=== PATIENT | male | born 1955 | race Caucasian/White ===

== ENCOUNTER 2020-07-18 22:59 | Outpatient (RCR) | payer MEDICARE, SELFPAY ==
[2020-07-18] MEDS: COVID-19 VACC, MRNA(PFIZER)/PF 30 MCG/0.3 ML SYRINGE IM (11:48)
[2020-08-08] MEDS: COVID-19 VACC, MRNA(PFIZER)/PF 30 MCG/0.3 ML SYRINGE IM (11:12)
== END 2020-10-17 23:59 ==
LOC: IMMUN 22:59
PROVIDERS: PCP Nurse Practitioner Primary Care; Visit Provider Family Medicine
DX: Z23 Encounter for immunization (principal)
CPT/HCPCS: 0001A; 0002A; 91300

== ENCOUNTER 2023-02-18 15:21 | Inpatient (IN) | payer MEDICARE, SELFPAY ==
[2023-02-18 15:22] VITALS: BP 108/78; PULSE 87; RESP 16; TEMP 36; O2SAT 97; BMI 38.7
--- NOTE | 2023-02-18 17:10 | EKG12_ITS ---
Test Reason : Blood Pressure : / mmHG Vent. Rate : 082 BPM Atrial Rate : 082 BPM P-R Int : 186 ms QRS Dur : 088 ms QT Int : 358 ms P-R-T Axes : -03 -16 -12 degrees QTc Int : 418 ms Normal sinus rhythm Inferior infarct , age undetermined Anterolateral infarct , age undetermined Abnormal ECG Confirmed by SHEILA DAWSON, TASHA ([id number]), movie editor ARNALDO ALBERTO ([id number]) on 02/24/2023 2:05:49 PM Referred By: Confirmed By:TASHA SOSA MD
[2023-02-18 17:18] LABS: Absolute Lymphocyte Count 1.23 X10^3/uL (0.83-4.51); Absolute Neutrophil Count 10.2 X10^3/uL (2.0-7.7); Basophil# 0.15 X10^3/uL; Basophil% 1.1 % (0-1); Eosinophil# 0.26 X10^3/uL; Hematocrit 48.5 % (40-54); Hemoglobin 16.3 g/dL (13.0-16.5); Lymphocyte # 1.23 X10^3/ul (0.83-4.51); Lymphocyte % 9.4 % (19-41); Mean Corp Hgb Conc 33.6 g/dL (32-36); Mean Corpuscular Hgb 35.4 pg (27.0-32.0); Mean Corpuscular Volume 105.2 fL (80-94); Mean Platelet Vol. 9.2 fl (6.2-12.0); Monocyte% 9.2 % (0-10); NRBC Flagged by Analyzer 0 % (0-5); Neutrophil # 10.16 X10^3/uL (2.7-7.7); Neutrophil % 77.8 % (47-70); Platelet Count 312 K/mm3 (150-450); RBC Distribution Width CV 13.1 % (11.6-14.6); RBC Distribution Width SD 50.7 fl (35.1-43.9); Red Blood Count 4.61 M/mm3 (4.6-6.2); White Blood Count 13.1 K/mm3 (4.4-11.0)
--- NOTE | 2023-02-18 17:20 | EX.ED.DYSGE1 ---
HPI History of Present Illness Chief Complaint: Edema Informant: patient Narrative Narrative: Patient presents secondary to increasing edema over the past couple weeks. He first noted swelling in his lower extremities and states it is now up into his abdomen. He feels short of breath. His noted he had bright red blood per rectum today. Patient states he has never had a colonoscopy. He sees his doctor once a year but states she does not normally do blood work. Patient does report a drink a pint of whiskey every day but denies any known problems with his liver. [facility] Medical History (Updated 02/18/23 @ 21:[address] Mercedes Carpenter MD) Hypertension Allergy/AdvReac Type Severity Reaction Status Date / Time No Known Allergies Allergy Verified 02/18/23 15:22 Social History Smoking Status: Never smoker ROS ROS ED Constitutional Constitutional ED: Denies chills or fever(s) Eyes Eyes: Denies change in vision or discharge from eye(s) ENT ENT ED: Denies discharge from eye(s), rhinorrhea or sore throat Cardiovascular Cardiovascular: Denies chest pain or palpitations Respiratory/Chest Respiratory/Chest: Reports dyspnea; Denies cough Gastrointestinal Gastrointestinal: Reports abdominal pain, nausea and other Details: Right red blood per rectum ; Denies diarrhea or vomiting Genitourinary Genitourinary ED: Denies dysuria Musculoskeletal Musculoskeletal: Reports extremity pain; Denies back pain Integumentary Denies Abrasions or rash Neurologic Neurologic: Denies headache(s) or weakness Psychiatric Psychiatric: Denies anxiety or depression Allergic/Immunologic Allergic/Immunologic ED: Denies lip swelling or urticaria EXAM Physical Exam Const Vital Signs: 02/18/23 15:22 02/18/23 16:41 02/18/23 18:46 Temperature 96.8 F L Temperature Source Temporal Pulse Rate 87 81 Respiratory Rate 16 20 H Respiratory Effort Normal Non-Labored Respiratory Pattern Normal Blood Pressure 108/78 Blood Pressure Mean 88 Pulse Ox 97 92 Oxygen Delivery Method Room Air 02/18/23 20:02 Temperature Temperature Source Pulse Rate 82 Respiratory Rate 16 Respiratory Effort Respiratory Pattern Blood Pressure 108/70 Blood Pressure Mean 82 Pulse Ox 94 Oxygen Delivery Method Room Air Positive well nourished and well developed General Appearance ED: well developed HEENT Reports normocephalic and head/scalp atraumatic Eyes PERRL and EOMs intact bilaterally Neck supple Chest Wall inspection of chest normal and palpation of chest normal Resp normal respiratory effort and clear to auscultation bilaterally Cardio regular rate and regular rhythm GI GI Narrative: Abdomen distended with ascitic fluid. Palpation: soft Extremity Extremity Narrative: 4+ lower extremity edema bilaterally. Neuro oriented x3 and no sensory deficits noted Sensorium / Orientation: alert Motor Exam: strength 5/5 throughout Psych mental status grossly normal Skin no rashes or lesions noted MDM MDM MDM Narrative Medical decision making narrative: IV line established. Labwork obtained to evaluate for leukocytosis, anemia, and electrolyte derangement. CT scan abdomen pelvis obtained. Lab Data Attestation: I reviewed the patient's lab results. Labs: Laboratory Results - last 24 hr 02/18/23 16:50 WBC 13.1 H RBC 4.61 Hgb 16.3 Hct 48.5 MCV 105.2 H MCH 35.4 H MCHC 33.6 RDW Std Deviation 50.7 H RDW Coeff of Hector 13.1 Plt Count 312 MPV 9.2 Immature Gran % (Auto) 0.500 Neut % (Auto) 77.8 H Lymph % (Auto) 9.4 L [place] % (Auto) 9.2 Eos % (Auto) 2.0 Baso % (Auto) 1.1 H Absolute Neuts (auto) 10.2 H Absolute Lymphs (auto) 1.23 Nucleated RBC % 0 PT 15.9 H INR 1.3 APTT 32.4 Sodium 134 L Potassium 5.0 Chloride 100 Carbon Dioxide 27.0 Anion Gap 7 BUN 56 H Creatinine 2.51 H Estim Creat Clear Calc 30.42 Est GFR (MDRD) Af Amer 33 L Est GFR (MDRD) Non-Af 27 L BUN/Creatinine Ratio 22.3 H Glucose 161 H Calcium 9.2 Total Bilirubin 1.90 H Direct Bilirubin 0.88 H AST 49 H ALT 31 Alkaline Phosphatase 131 H B-Natriuretic Peptide 49.4 Total Protein 7.8 Albumin 2.1 L Globulin 5.7 H Lipase 173 H Blood Type B POSITIVE Antibody Screen NEGATIVE Radiography Diagnostic Testing: Clinical Impression(s) from Imaging Studies Abdomen/Pelvis CT 02/18/23 18:04 IMPRESSION: Cirrhotic liver. Multiple gallstones. Severe ascites. Colonic diverticulosis. No obstruction. Large infrarenal abdominal aortic aneurysm. Electronically Signed: Moisés Muir MD at 19:12 EDT , ADDENDUM: 02/18/231931 IMPRESSION: Cirrhotic liver. Multiple gallstones. Severe ascites. Colonic diverticulosis. No obstruction. Large infrarenal abdominal aortic aneurysm. N.B. : Mercedes Dwyer OT, confirmed on 02/18/2023 19:25:47 (ET) that the healthcare facility has received the radiology report. Electronically Signed: Moisés Muir MD at 19:12 EDT , Treatment and Re-Evaluation :: CBC was a white count of 13.1 with 78% neutrophils. Hemoglobin is normal at 16.3. INR is 1.3. Chemistry studies significant for BUN of 56 and creatinine 2.51. He had normal renal function when labs were last checked 5 years ago. LFTs reveal total bili of 1.9 and direct bilirubin of 0.88. AST is 49. ALT is 31 and alk phos is 131. Lipase is slightly elevated at 175. CT scan of the abdomen pelvis reveals cirrhotic liver with multiple gallstones and severe ascites. Colonic diverticulosis is noted. There is a infrarenal abdominal aortic aneurysm measuring 5 cm. Test results are discussed with Dr. Castro. He asked the patient be started on octreotide drip at 12.5/h, Protonix drip, and a dose of Rocephin 1 g IV. He states that if we are able to complete a prep tonight he will do a colonoscopy and upper tomorrow. If he cannot tolerate the prep he will plan to do an EGD tomorrow and then perhaps pursue colonoscopy after the patient has had a paracentesis. This is discussed with the patient at bedside. I will speak with hospitalist regarding admission. Discharge Plan Triage Chief Complaint: Edema ED Provider: Mercedes Carpenter Dx/Rx/DC Orders Clinical Impression: Ascites, GI bleed, Cirrhosis, Renal insufficiency Primary Care Provider: Jenn Stanley FACTORY FOCUS TECHNICIAN Referrals: Jenn Stanley FACTORY FOCUS TECHNICIAN, FACTORY FOCUS TECHNICIAN-C [Primary Care Provider] - Disposition Disposition: Acute Care [facility]
[2023-02-18 17:36] LABS: AST(SGOT) 49 U/L (15-37); Alanine Aminotransfer ALT/SGPT 31 U/L (16-61); Albumin, Serum 2.1 g/dL (3.2-5.0); Alkaline Phosphatase 131 U/L (45-117); Anion Gap 7 (5-15); BUN 56 mg/dL (7-18); BUN/Creat Ratio 22.3 RATIO (10-20); Bilirubin, Direct 0.88 mg/dL (0.00-0.30); Calcium,Total 9.2 mg/dL (8.5-10.1); Chloride 100 mmol/L (98-107); Creatinine, Serum 2.51 mg/dL (0.70-1.30); EST Glomerular Filtration Rate 27 mL/min (>60); Est Glom Filt Rate - Afr Amer 33 mL/min (>60); Estimated Creatinine Clearance 30.42 ml/min; Globulin 5.7 g/dL (2.2-4.2); Glucose 161 mg/dL (74-106); Lipase 173 U/L (13-75); Protein, Total 7.8 g/dL (6.4-8.2); Sodium Level 134 mmol/L (136-145)
[2023-02-18 17:37] LABS: International Normalized Ratio 1.3; Prothrombin Time (Protime)PT. 15.9 SECONDS (11.7-14.9)
[2023-02-18 17:38] LABS: Partial Thromboplast Time 32.4 Seconds (24.1-36.2)
[2023-02-18 17:46] LABS: BNP,B-Type NATRIURETIC PEPTIDE 49.4 pg/mL (0-100)
--- NOTE | 2023-02-18 18:04 | CT_ITS ---
ACR Level 3 findings have been noted. An addendum which confirms receipt of the report will follow. STUDY: CT ABDOMEN AND PELVIS WITHOUT CONTRAST REASON FOR EXAM: Male, 67 years old. Pain, ascites RADIATION DOSAGE (If Supplied By Facility): CTDIvol = ( 19.41 ) mGy, DLP = ( 1042.45 ) mGycm TECHNIQUE: Transaxial images were obtained from the dome of the diaphragm to the symphysis pubis without oral contrast, and without intravenous contrast. Sagittal and coronal images were reconstructed. Individualized dose optimization techniques were used for this CT. COMPARISON: None. FINDINGS: There are interstitial increased opacities of the lower lungs. There are coronary artery calcifications. There is a diffuse contour abnormality of the liver consistent with cirrhotic changes. There are multiple gallstones. Normal spleen. Normal pancreas. Normal bilateral adrenal glands. Normal right kidney. There is 2.2 cm parapelvic cyst of the left kidney. There is wall thickening of the distal esophagus with probable varices. Normal visualized stomach. Normal small intestine. There are multiple colonic diverticula consistent with diverticulosis. The appendix is visualized and appears normal. There is diffuse atherosclerotic calcification of the abdominal aorta, with a 5.0 cm infrarenal aneurysm. Normal inferior vena cava. Normal retroperitoneum. Normal urinary bladder. There is severe ascites in the abdomen and pelvis Normal abdominal wall. There are diffuse degenerative changes of the visualized lumbar spine. CT/Abdomen/Pelvis without Cont IMPRESSION: Cirrhotic liver. Multiple gallstones. Severe ascites. Colonic diverticulosis. No obstruction. Large infrarenal abdominal aortic aneurysm. Electronically Signed: Moisés Muir MD at 19:12 EDT ,
[2023-02-18 18:46] VITALS: PULSE 81; RESP 20; O2SAT 92
[2023-02-18 20:02] VITALS: BP 108/70; PULSE 82; RESP 16; O2SAT 94
--- NOTE | 2023-02-18 21:12 | HP.PCM.HOS_ITS ---
HPI - General General Date of Admission: 02/18/23 Date of Service: 02/18/23 Chief Complaint: Swelling HPI Narrative PHILIP MENDOZA, is a 67 M with a significant history of alcoholism; and hypertension who presents to the emergency department because of swelling of his bilateral lower extremities and his abdomen. Because of swelling of his abdomen he has some trouble breathing. On the morning of the day presentation patient noted some bright red blood per rectum. ED provider reports that medical student upon examination noticed bright red blood per rectum. Patient reports that he drinks a pint of whiskey with his every day. He reports that the last time he drank was either a day before presentation or 2-day before presenta tion. Discussed case with gastroenterology who recommended octreotide, Protonix drip and ceftriaxone. Per conversation between ED doc and gastroenterology patient should be bowel prepped and he may have EGD and colonoscopy or only EGD. [facility] Medical History Alcohol abuse Former smoker Hypertension Home Medications metoprolol succinate 100 mg tablet,extended release 24 hr 100 mg PO DAILY bp 02/18/23 [History Last Taken Unknown] Allergy/AdvReac Type Severity Reaction Status Date / Time No Known Allergies Allergy Verified 02/18/23 15:22 Family History Other Cancer Surgical History no surgical history no surgical history Social History Smoking Status: Former smoker Electronic Cigarette Use: with nicotine ROS ROS Narrative Pertinent positives and pertinent negatives as noted in HPI. All other systems were reviewed and are negative Vital Signs Vital Signs Vital Signs: 02/18/23 15:22 02/18/23 16:41 02/18/23 18:46 Temperature 96.8 F L Temperature Source Temporal Pulse Rate 87 81 Respiratory Rate 16 20 H Respiratory Effort Normal Non-Labored Respiratory Pattern Normal Blood Pressure 108/78 Blood Pressure Mean 88 Pulse Ox 97 92 Oxygen Delivery Method Room Air 02/18/23 20:02 Temperature Temperature Source Pulse Rate 82 Respiratory Rate 16 Respiratory Effort Respiratory Pattern Blood Pressure 108/70 Blood Pressure Mean 82 Pulse Ox 94 Oxygen Delivery Method Room Air Weight Weight: 126.099 kg Body Mass Index (BMI) 38.7 Physical Exam Narrative Physical exam: General: Well-nourished, well-developed. Head: Normocephalic, atraumatic, no tenderness Eyes: Vision is grossly intact. EOMI ENT, no trauma, dry mucous membranes, no rhinorrhea Neck: Nontender, No thyromegaly. CVS: Regular rate and rhythm. S1-S2 present. No murmur, gallop or rub. Respiratory : Rales bilaterally, chest wall nontender Abdomen: Distended abdomen; normal bowel sounds, no masses : Deferred Back: Nontender, no CVA tenderness, no midline spinal tenderness, deformities, step-offs Extremities: Swelling bilateral lower extremities Skin: Normal color, no trauma, abrasions Neuro: Alert, oriented, cranial nerves II through XII grossly intact. Psychiatry: Normal mood. Normal affect. Not depressed. Not anxious. Results Lab / Micro Data 02/18/23 16:50 02/18/23 16:50 Labs: Laboratory Results - last 24 hr 02/18/23 16:50: WBC 13.1 H, RBC 4.61, Hgb 16.3, Hct 48.5, MCV 105.2 H, MCH 35.4 H, MCHC 33.6, RDW Std Deviation 50.7 H, RDW Coeff of Hector 13.1, Plt Count 312, MPV 9.2, Immature Gran % (Auto) 0.500, Neut % (Auto) 77.8 H, Lymph % (Auto) 9.4 L, [place] % (Auto) 9.2, Eos % (Auto) 2.0, Baso % (Auto) 1.1 H, Absolute Neuts (auto) 10.2 H, Absolute Lymphs (auto) 1.23, Nucleated RBC % 0, PT 15.9 H, INR 1.3, APTT 32.4, Sodium 134 L, Potassium 5.0, Chloride 100, Carbon Dioxide 27.0, Anion Gap 7, BUN 56 H, Creatinine 2.51 H, Estim Creat Clear Calc 30.42, Est GFR (MDRD) Af Amer 33 L, Est GFR (MDRD) Non-Af 27 L, BUN/Creatinine Ratio 22.3 H, Glucose 161 H, Calcium 9.2, Total Bilirubin 1.90 H, Direct Bilirubin 0.88 H, AST 49 H, ALT 31, Alkaline Phosphatase 131 H, B-Natriuretic Peptide 49.4, Total Protein 7.8, Albumin 2.1 L, Globulin 5.7 H, Lipase 173 H, Blood Type B POSITIVE, Antibody Screen NEGATIVE Radiology Impression Abdomen/Pelvis CT 02/18/23 18:04 IMPRESSION: Cirrhotic liver. Multiple gallstones. Severe ascites. Colonic diverticulosis. No obstruction. Large infrarenal abdominal aortic aneurysm. Electronically Signed: Moisés Muir MD at 19:12 EDT Reading Location ID and State: [id number] [place] [address] , Service support , ADDENDUM: 02/18/23 1932 IMPRESSION: Cirrhotic liver. Multiple gallstones. Severe ascites. Colonic diverticulosis. No obstruction. Large infrarenal abdominal aortic aneurysm. N.B. : Mercedes Dwyer OT, confirmed on 02/18/2023 19:25:47 (ET) that the healthcare facility has received the radiology report. Electronically Signed: Moisés Muir MD at 19:12 EDT , Assessment & Plan Assessment/Plan (1) GI bleed: QUALIFIERS: GI bleed type/associated pathology: unspecified gastrointestinal hemorrhage type Qualified Code(s): K92.2 - Gastrointestinal hemorrhage, unspecified (2) Cirrhosis: QUALIFIERS: Hepatic cirrhosis type: alcoholic cirrhosis Ascites presence: with ascites Qualified Code(s): K70.31 - Alcoholic cirrhosis of liver with ascites (3) Ascites: QUALIFIERS: Ascites type: other type Qualified Code(s): R18.8 - Other ascites (4) Acute renal failure: QUALIFIERS: Acute renal failure type: with acute tubular necrosis Qualified Code(s): N17.0 - Acute kidney failure with tubular necrosis (5) Alcoholism: PLAN: Plan Acute GI bleed Hemoglobin is stable at 16.3; trend Likely secondary to cirrhosis with variceal bleed. Protonix started at the emergency department and continued. GI consult Ascites cirrhosis Considered ultrasound paracentesis but not ordered secondary possible EGD colonoscopy in a.m. Considered diuresis but not ordered for the same reason above. Bowel prep and diuresis together may be overwhelming for patient. MIKE with ATN Luke intravascularly depleted but with edema. Consider Lasix and albumin in due course. Alcoholism Counseled CIWA protocol with as needed Ativan ordered. Multivitamin and folic acid ordered. DVT Prophylaxis: SCDs ordered. Time spent in the patient's overall evaluation,decision-making process, review of diagnostic data, adjustment of management, discussion with other providers, nursing nursing and ancillary staff involved in patient's care documentation, 70 minutes. Charges/Coding Visit Charges Inpatient E&M: 45119 Init Hosp L3
[2023-02-18] MEDS: Ceftriaxone 1 GM/50 ML BAG IV (22:13)
[2023-02-18] MEDS: Octreotide 0.5 MG in Dextrose 5%-Water (250mL Bag) 250 ML 12.5 MG CONT INF (22:13)
[2023-02-18 22:14] VITALS: BP 96/82; PULSE 95; RESP 18; O2SAT 94
[2023-02-18 22:20] VITALS: BP 101/77; PULSE 94; RESP 18; TEMP 36.8; O2SAT 94
[2023-02-18] MEDS: Pantoprazole Sodium 80 MG in 0.9% Normal Saline (100mL Bag) 80 ML 10 MG CONT INF (22:20)
[2023-02-18 22:54] VITALS: BMI 26.4
--- NOTE | 2023-02-18 23:00 | NURSING ---
This RN discussed plan of care with pt and with pt's spouse who was on the phone with pt. Explained that the plan is to prep pt for colonoscopy/endoscopy in order to find out why pt is having bloody stools. Explained to pt that he needs to drink bowel prep in order to clear out digestive tract for scopes. Pt and spouse verbalize understanding.
--- NOTE | 2023-02-18 23:00 | EX.PCM.CON.G ---
HPI Consult Data Date of Consult: 02/19/23 HPI Narrative Reason for Consultation: GI bleed and bloating HPI Narrative: PHILIP MENDOZA, is a 67 M who presents secondary to increasing edema over the past couple weeks. He first noted swelling in his lower extremities and states it is now up into his abdomen. He feels short of breath. His noted he had bright red blood per rectum today. Patient states he has never had a colonoscopy. He sees his doctor once a year but states she does not normally do blood work. Patient does report a drink a pint of whiskey every day but denies any known problems with his liver. It is because of swelling of his abdomen he has some trouble breathing. On the morning of the day presentation patient noted some bright red blood per rectum. ED provider reports that medical student upon examination noticed bright red blood per rectum. Patient reports that he drinks a pint of whiskey with his every day. He reports that the last time he drank was either a day before presentation or 2-day before presentation. He had a CT scan abdomen pelvis that showed mild ascites along with a very small liver and normal spleen. [facility] Medical History Alcohol abuse Former smoker Hypertension Home Medications metoprolol succinate 100 mg tablet,extended release 24 hr 100 mg PO DAILY bp 02/18/23 [History Last Taken Unknown] Allergy/AdvReac Type Severity Reaction Status Date / Time No Known Allergies Allergy Verified 02/18/23 15:22 Family History Other Cancer Surgical History no surgical history Social History Smoking Status: Former smoker Electronic Cigarette Use: with nicotine ROS ROS Narrative Pertinent positives and pertinent negatives as noted in HPI. All other systems were reviewed and are negative Physical Exam Narrative Physical exam: General: Well-nourished, well-developed. Head: Normocephalic, atraumatic, no tenderness Eyes: Vision is grossly intact. EOMI ENT, no trauma, dry mucous membranes, no rhinorrhea Neck: Nontender, No thyromegaly. CVS: Regular rate and rhythm. S1-S2 present. No murmur, gallop or rub. Respiratory : Rales bilaterally, chest wall nontender Abdomen: Distended abdomen; normal bowel sounds, no masses : Deferred Back: Nontender, no CVA tenderness, no midline spinal tenderness, deformities, step-offs Extremities: Swelling bilateral lower extremities Skin: Normal color, no trauma, abrasions Neuro: Alert, oriented, cranial nerves II through XII grossly intact. Psychiatry: Normal mood. Normal affect. Not depressed. Not anxious. Lab / Micro Data 02/19/23 06:05 02/19/23 06:05 Labs: Laboratory Results - last 24 hr 02/18/23 16:50: WBC 13.1 H, RBC 4.61, Hgb 16.3, Hct 48.5, MCV 105.2 H, MCH 35.4 H, MCHC 33.6, RDW Std Deviation 50.7 H, RDW Coeff of Hector 13.1, Plt Count 312, MPV 9.2, Immature Gran % (Auto) 0.500, Neut % (Auto) 77.8 H, Lymph % (Auto) 9.4 L, [place] % (Auto) 9.2, Eos % (Auto) 2.0, Baso % (Auto) 1.1 H, Absolute Neuts (auto) 10.2 H, Absolute Lymphs (auto) 1.23, Nucleated RBC % 0, PT 15.9 H, INR 1.3, APTT 32.4, Sodium 134 L, Potassium 5.0, Chloride 100, Carbon Dioxide 27.0, Anion Gap 7, BUN 56 H, Creatinine 2.51 H, Estim Creat Clear Calc 30.42, Est GFR (MDRD) Af Amer 33 L, Est GFR (MDRD) Non-Af 27 L, BUN/Creatinine Ratio 22.3 H, Glucose 161 H, Calcium 9.2, Total Bilirubin 1.90 H, Direct Bilirubin 0.88 H, AST 49 H, ALT 31, Alkaline Phosphatase 131 H, B-Natriuretic Peptide 49.4, Total Protein 7.8, Albumin 2.1 L, Globulin 5.7 H, Lipase 173 H, Blood Type B POSITIVE, Antibody Screen NEGATIVE 02/19/23 06:05: WBC 14.7 H, RBC 4.35 L, Hgb 15.3, Hct 45.9, MCV 105.5 H, MCH 35.2 H, MCHC 33.3, RDW Std Deviation 51.8 H, RDW Coeff of Hector 13.1, Plt Count 263, MPV 9.3, Immature Gran % (Auto) 0.300, Neut % (Auto) 81.5 H, Lymph % (Auto) 7.9 L, [place] % (Auto) 8.0, Eos % (Auto) 1.4, Baso % (Auto) 0.9, Absolute Neuts (auto) 11.9 H, Absolute Lymphs (auto) 1.16, Nucleated RBC % 0, Sodium 132 L, Potassium 5.9 H, Chloride 103, Carbon Dioxide 21.0, Anion Gap 8, BUN 54 H, Creatinine 2.50 H, Estim Creat Clear Calc 29.61, Est GFR (MDRD) Af Amer 33 L, Est GFR (MDRD) Non-Af 27 L, BUN/Creatinine Ratio 21.6 H, Glucose 171 H, Calcium 8.6, Phosphorus 2.9, Magnesium 2.6, Total Bilirubin 2.40 H, AST 57 H, ALT 30, Alkaline Phosphatase 123 H, Total Protein 7.3, Albumin 1.9 L, Globulin 5.4 H, Albumin/Globulin Ratio 0.4 L Radiology Impression Abdomen/Pelvis CT 02/18/23 18:04 IMPRESSION: Cirrhotic liver. Multiple gallstones. Severe ascites. Colonic diverticulosis. No obstruction. Large infrarenal abdominal aortic aneurysm. Electronically Signed: Moisés Muir MD at 19:12 EDT , ADDENDUM: 02/18/23 193 IMPRESSION: Cirrhotic liver. Multiple gallstones. Severe ascites. Colonic diverticulosis. No obstruction. Large infrarenal abdominal aortic aneurysm. N.B. : Mercedes Dwyer OT, confirmed on 02/18/2023 19:25:47 (ET) that the healthcare facility has received the radiology report. Electronically Signed: Moisés Muir MD at 19:12 EDT , Assessment & Plan Assessment/Plan (1) GI bleed: QUALIFIERS: GI bleed type/associated pathology: unspecified gastrointestinal hemorrhage type Qualified Code(s): K92.2 - Gastrointestinal hemorrhage, unspecified PLAN: Other GI bleed with rapid transit is a possibility having cirrhosis. He should be screened with in upper endoscopy for varices. This Continue On octreotide gtt and pantoprazole gtt GI consult. (2) Ascites: QUALIFIERS: Ascites type: other type Qualified Code(s): R18.8 - Other ascites PLAN: likely secondary to cirrhosis. Should get a cardiac echo. diuretics held given hypotension. Blood test for other causes of liver disease. (3) Acute renal failure: QUALIFIERS: Acute renal failure type: with acute tubular necrosis Qualified Code(s): N17.0 - Acute kidney failure with tubular necrosis PLAN: check urine protein (4) Alcoholism: PLAN: Thiamine and folate PRN lorazepam Charges/Coding Visit Charges Inpatient E&M: 03369 Init Hosp L3
[2023-02-18 23:27] VITALS: BP 96/61; PULSE 69; RESP 16; TEMP 36.1; O2SAT 95
[2023-02-19] VITALS (30 sets, daily range): BP systolic 56–127; BP diastolic 46–87; PULSE 58–99; RESP 14–19; TEMP 36.1–36.8; O2SAT 91–99; BMI 26.6; BMI 27.3
[2023-02-19] MEDS: Polyethylene Glycol 3350 BOWEL PREP PO (00:01)
[2023-02-19] MEDS: Bisacodyl 5 MG Tablet 20 MG PO (00:01)
[2023-02-19] MEDS: Thiamine Hydrochloride 200 MG in 0.9% Normal Saline (50mL Bag) 50 ML IV (00:27)
--- NOTE | 2023-02-19 01:38 | NURSING ---
Pt continues to work on drinking bowel prep, about residential finished. Pt states I just don't know if I can drink this much liquid. This RN encouraged pt to keep drinking as much as he can.
--- NOTE | 2023-02-19 03:00 | NURSING ---
Addendum entered by Jean Marie Terrell 02/19/23 03:45: Pt stated he had a bm. However, ROBOTICS MECHANIC said when she assisted pt to BSC, he only peed. Pt still refusing to drink anymore of his bowel prep. Original Note: Pt states he can't drink anymore of his bowel prep despite encouragement and education from this RN. Pt drank a little over half of bowel prep. Pt has had one bowel movement, not seen by this nurse.
--- NOTE | 2023-02-19 06:00 | EKG12_ITS ---
Test Reason : AM EKG Blood Pressure : / mmHG Vent. Rate : 080 BPM Atrial Rate : 080 BPM P-R Int : 182 ms QRS Dur : 084 ms QT Int : 388 ms P-R-T Axes : -21 -14 -08 degrees QTc Int : 447 ms Normal sinus rhythm Inferior infarct , age undetermined Anterior infarct , age undetermined Abnormal ECG Confirmed by SHEILA DAWSON, TASHA ([id number]), order editor SANFORD JOYA ([id number]) on 02/25/2023 1:49:02 PM Referred By: TRENTON Confirmed By:TASHA SOSA MD
[2023-02-19 06:51] LABS: Absolute Lymphocyte Count 1.16 X10^3/uL (0.83-4.51); Absolute Neutrophil Count 11.9 X10^3/uL (2.0-7.7); Basophil# 0.13 X10^3/uL; Basophil% 0.9 % (0-1); Eosinophils% 1.4 % (0-5); Hematocrit 45.9 % (40-54); Hemoglobin 15.3 g/dL (13.0-16.5); Lymphocyte # 1.16 X10^3/ul (0.83-4.51); Lymphocyte % 7.9 % (19-41); Mean Corp Hgb Conc 33.3 g/dL (32-36); Mean Corpuscular Hgb 35.2 pg (27.0-32.0); Mean Corpuscular Volume 105.5 fL (80-94); Mean Platelet Vol. 9.3 fl (6.2-12.0); Monocyte# 1.18 X10^3/uL; NRBC Flagged by Analyzer 0 % (0-5); Neutrophil # 11.94 X10^3/uL (2.7-7.7); Neutrophil % 81.5 % (47-70); Platelet Count 263 K/mm3 (150-450); RBC Distribution Width CV 13.1 % (11.6-14.6); RBC Distribution Width SD 51.8 fl (35.1-43.9); Red Blood Count 4.35 M/mm3 (4.6-6.2); White Blood Count 14.7 K/mm3 (4.4-11.0)
[2023-02-19 07:35] LABS: ALB/GLOB Ratio 0.4 RATIO (0.9-2.4); AST(SGOT) 57 U/L (15-37); Alanine Aminotransfer ALT/SGPT 30 U/L (16-61); Albumin, Serum 1.9 g/dL (3.2-5.0); Alkaline Phosphatase 123 U/L (45-117); Anion Gap 8 (5-15); BUN 54 mg/dL (7-18); BUN/Creat Ratio 21.6 RATIO (10-20); Calcium,Total 8.6 mg/dL (8.5-10.1); Chloride 103 mmol/L (98-107); EST Glomerular Filtration Rate 27 mL/min (>60); Est Glom Filt Rate - Afr Amer 33 mL/min (>60); Estimated Creatinine Clearance 29.61 ml/min; Globulin 5.4 g/dL (2.2-4.2); Glucose 171 mg/dL (74-106); Magnesium 2.6 mg/dL (1.6-2.6); Phosphorus 2.9 mg/dL (2.5-4.9); Potassium 5.9 mmol/L (3.5-5.1); Protein, Total 7.3 g/dL (6.4-8.2); Sodium Level 132 mmol/L (136-145)
[2023-02-19] MEDS: Pantoprazole Sodium 80 MG in 0.9% Normal Saline (100mL Bag) 80 ML 10 MG CONT INF ×2 (09:14→23:39)
[2023-02-19] MEDS: Thiamine Hydrochloride 100 MG in 0.9% Normal Saline (50mL Bag) 50 ML 200 MG IV (09:26)
[2023-02-19] MEDS: Folic Acid 1 MG in 0.9% Normal Saline (50mL Bag) 50 ML 200 MG IV (09:43)
--- NOTE | 2023-02-19 10:37 | NURSING ---
1015- off unit via bed for scheduled procedure
--- NOTE | 2023-02-19 10:43 | CASEMGMT ---
Addendum entered by Jil Garner 02/19/23 15:22: Noted 6 clicks=17, therapy ordered. Addendum entered by Jil Garner 02/19/23 15:20: [facility] MALONEY Assessment: Face to Face with pt for initial transition planning/care coordination assessment. LUH MALONEY introduced self and role at [facility], pt voices understanding and consents to assessment. Pt is A&O x3, drowsy from procedure and asks if who is present in the room can answer the questions. Assessment completed with . Care providers, pharmacy, and demographics verified/updated. Admitting Dx: kasey GONZALEZ PCP:Jenn Stanley NP Specialists:None Preferred Pharmacy: [facility] Insurance: [employer] [facility] Prescription Benefit: yes LNOK: April Cuellar, Living Arrangements: Pt lives with in a split level duplex with 14 steps to enter with a rail on both sides. Pt could go to the back entrance where there is only 4 steps to enter. assists with dressing and pt does own bathing. Pt and share the meal preparation, laundry and grocery shopping. Pt denies concerns at home. Transportation: Pt drives self and denies concerns with transportation. DME:shower chair, walker which pt uses, cane HHC/SNF: Pt denies hx of Pt states no concerns with going home at time of dc. Pt states no further concerns/needs. CM to follow. Advised pt to ask CM if any further question/concerns/needs arise, voices understanding. Pt Goal: Home Plan: Home Original Note: [facility] MALONEY into pt room, pt is off of the floor at this time. L[facility] MALONEY to complete assessment at a later time.
[2023-02-19] MEDS: Lactated Ringers 1,000 ML 15 ML IV ×2 (11:00→13:18)
--- NOTE | 2023-02-19 11:07 | CASEMGMT ---
SW went to meet with patient regarding ETOH use, however patient was out of the room for testing. SW will check back as able. Susana Suresh SUPPORT CLERK LUISANA
--- NOTE | 2023-02-19 11:27 | PCM.PN.HOSP ---
Reason for Visit Reason for Visit: Diagnoses Alcohol dependence, uncomplicated (02/18/23) Alcoholic cirrhosis of liver with ascites (02/18/23) Gastrointestinal hemorrhage, unspecified (02/18/23) Acute kidney failure with tubular necrosis (02/18/23) Other ascites (02/18/23) Subjective Subjective Post EGD was hypotensive and received IVF. Has had abdominal distention for 3 weeks. Objective Data Objective Data Vital Signs: Vital Signs Temp Pulse Resp BP Pulse Ox O2 Del Method 36.3 C L 87 16 87/70 L 96 Room Air 02/19/23 09:30 02/19/23 09:30 02/19/23 09:30 02/19/23 09:30 02/19/23 09:30 02/19/23 09:30 Oxygen Delivery Method Room Air Weight: 88.5 kg Body Mass Index (BMI) 27.3 Intake & Output: Intake and Output for Last 24 Hours 02/17/23 02/18/23 02/19/23 23:59 23:59 23:59 Intake Total 50 / 50 407.53 / 407.53 Balance 50 / 50 407.53 / 407.53 Lab / Micro Data 02/19/23 06:05 02/19/23 06:05 Labs: Laboratory Results - last 24 hr 02/18/23 16:50: WBC 13.1 H, RBC 4.61, Hgb 16.3, Hct 48.5, MCV 105.2 H, MCH 35.4 H, MCHC 33.6, RDW Std Deviation 50.7 H, RDW Coeff of Hector 13.1, Plt Count 312, MPV 9.2, Immature Gran % (Auto) 0.500, Neut % (Auto) 77.8 H, Lymph % (Auto) 9.4 L, [place] % (Auto) 9.2, Eos % (Auto) 2.0, Baso % (Auto) 1.1 H, Absolute Neuts (auto) 10.2 H, Absolute Lymphs (auto) 1.23, Nucleated RBC % 0, PT 15.9 H, INR 1.3, APTT 32.4, Sodium 134 L, Potassium 5.0, Chloride 100, Carbon Dioxide 27.0, Anion Gap 7, BUN 56 H, Creatinine 2.51 H, Estim Creat Clear Calc 30.42, Est GFR (MDRD) Af Amer 33 L, Est GFR (MDRD) Non-Af 27 L, BUN/Creatinine Ratio 22.3 H, Glucose 161 H, Calcium 9.2, Total Bilirubin 1.90 H, Direct Bilirubin 0.88 H, AST 49 H, ALT 31, Alkaline Phosphatase 131 H, B-Natriuretic Peptide 49.4, Total Protein 7.8, Albumin 2.1 L, Globulin 5.7 H, Lipase 173 H, Blood Type B POSITIVE, Antibody Screen NEGATIVE 02/19/23 06:05: WBC 14.7 H, RBC 4.35 L, Hgb 15.3, Hct 45.9, MCV 105.5 H, MCH 35.2 H, MCHC 33.3, RDW Std Deviation 51.8 H, RDW Coeff of Hector 13.1, Plt Count 263, MPV 9.3, Immature Gran % (Auto) 0.300, Neut % (Auto) 81.5 H, Lymph % (Auto) 7.9 L, [place] % (Auto) 8.0, Eos % (Auto) 1.4, Baso % (Auto) 0.9, Absolute Neuts (auto) 11.9 H, Absolute Lymphs (auto) 1.16, Nucleated RBC % 0, Sodium 132 L, Potassium 5.9 H, Chloride 103, Carbon Dioxide 21.0, Anion Gap 8, BUN 54 H, Creatinine 2.50 H, Estim Creat Clear Calc 29.61, Est GFR (MDRD) Af Amer 33 L, Est GFR (MDRD) Non-Af 27 L, BUN/Creatinine Ratio 21.6 H, Glucose 171 H, Calcium 8.6, Phosphorus 2.9, Magnesium 2.6, Total Bilirubin 2.40 H, AST 57 H, ALT 30, Alkaline Phosphatase 123 H, Total Protein 7.3, Albumin 1.9 L, Globulin 5.4 H, Albumin/Globulin Ratio 0.4 L Radiography Diagnostic Testing: Radiology Impression Abdomen/Pelvis CT 02/18/23 18:04 IMPRESSION: Cirrhotic liver. Multiple gallstones. Severe ascites. Colonic diverticulosis. No obstruction. Large infrarenal abdominal aortic aneurysm. Electronically Signed: Moisés Muir MD at 19:12 EDT , ADDENDUM: 02/18/231931 IMPRESSION: Cirrhotic liver. Multiple gallstones. Severe ascites. Colonic diverticulosis. No obstruction. Large infrarenal abdominal aortic aneurysm. N.B. : Mercedes Dwyer OT, confirmed on 02/18/2023 19:25:47 (ET) that the healthcare facility has received the radiology report. Electronically Signed: Moisés Muir MD at 19:12 EDT , Physical Exam Const alert and no apparent distress HEENT head/scalp atraumatic Resp normal respiratory effort, no retractions, no use of accessory muscles and clear to auscultation bilaterally Cardio regular rate, regular rhythm, S1 normal heart sound and S2 normal heart sound GI normal to inspection, nondistended, normoactive bowel sounds, soft to palpation, non-tender and non-distended Neuro Sensorium / Orientation: awake and alert Assessment & Plan Assessment/Plan (1) GI bleed: QUALIFIERS: GI bleed type/associated pathology: unspecified gastrointestinal hemorrhage type Qualified Code(s): K92.2 - Gastrointestinal hemorrhage, unspecified PLAN: BRBPR. Doubt upper source given relative stability. Monitor H/H On octreotide gtt and pantoprazole gtt EGD performed today showed Gread II esphageal varices, incompletely eradicated. Banded. 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 Low grade Schatzki ring. Portal hypertensive gastropahty. Treat w argon plasma coagulation. Alcoholic duodenitis. on pantoprazole gtt and CTX. (2) Ascites: QUALIFIERS: Ascites type: other type Qualified Code(s): R18.8 - Other ascites PLAN: with LE edema likely 2/2 cirrhosis diuretics held given hypotension (3) Acute renal failure: QUALIFIERS: Acute renal failure type: with acute tubular necrosis Qualified Code(s): N17.0 - Acute kidney failure with tubular necrosis PLAN: v CKD monitor (4) Alcoholism: PLAN: Thiamine and folate PRN lorazepam pt was drinking a pint of liquor/d. He states his last day of alcohol was yesterday. (5) Hypotension: QUALIFIERS: Hypotension type: other hypotension type Qualified Code(s): I95.89 - Other hypotension PLAN: unclear if acute v chronic start midodrine check ACTH stim test PLAN: Plan DVT Prophylaxis: SCDs ordered. Charges/Coding Visit Charges Inpatient E&M: 57162 Subs Hosp L2
--- NOTE | 2023-02-19 12:17 | OP.CCLET_ITS ---
02/19/2023 Jenn Stanley Re : Upper GI endoscopy procedure for Ricki Cuellar Dear Jaden This procedure was performed on Sunday, February 19, 2023. My impressions and recommendations are as follows: Impressions : - Grade II esophageal varices. Incompletely eradicated. Banded. 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 - Low-grade of narrowing Schatzki ring. - Portal hypertensive gastropathy. Treated with argon plasma coagulation (APC). - Alcoholic duodenitis. Biopsied. Recommendations : nadol 10mg bid midodrine 5mg tid paracentesis to calculate SAAG with albumin start lasix and aldactone after paracentesis - Continue present medications. My findings are described in the full procedure note, which is enclosed. If I can be of further assistance, please feel free to contact me at . Sincerely, Ilya Friend, 02/19/2023 12:16:31 PM This report has been signed electronically.
--- NOTE | 2023-02-19 12:17 | OP.EGD_ITS ---
Patient Name: Ricki Cuellar Procedure Date: 02/19/2023 11:51 AM Date of : 1955 Age: 67 Procedure: Upper GI endoscopy Indications: Melena Providers: Ilya Castro DO Medicines: Monitored Anesthesia Care Patient Profile: This is a 67 year old male. Refer to note in patient chart for documentation of history and physical. Patient has symptoms of acute abdominal distention, acute nausea and acute vomiting. Complications: No immediate complications. Procedure: Pre-Anesthesia Assessment: - Prior to the procedure, a History and Physical was performed, and patient medications and allergies were reviewed. The patient is competent. The risks and benefits of the procedure and the sedation options and risks were discussed with the patient. All questions were answered and informed consent was obtained. Patient identification and proposed procedure were verified by the physician. Mental Status Examination: normal. Prophylactic Antibiotics: The patient does not require prophylactic antibiotics. Prior Anticoagulants: The patient has taken no anticoagulant or antiplatelet agents. After reviewing the risks and benefits, the patient was deemed in satisfactory condition to undergo the procedure. The anesthesia plan was to use monitored anesthesia care (MAC). Immediately prior to administration of medications, the patient was re-assessed for adequacy to receive sedatives. The heart rate, respiratory rate, oxygen saturations, blood pressure, adequacy of pulmonary ventilation, and response to care were monitored throughout the procedure. The physical status of the patient was re-assessed after the procedure. After obtaining informed consent, the endoscope was passed under direct vision. Throughout the procedure, the patient's blood pressure, pulse, and oxygen saturations were monitored continuously. The was introduced through the mouth, and advanced to the second part of duodenum. The upper GI endoscopy was accomplished without difficulty. The patient tolerated the procedure well. Scope In: 12:01:53 PM Scope Out: 12:06:04 PM Total Procedure Duration Time 0 hours 4 minutes 11 seconds Findings: Grade II varices were found in the lower third of the esophagus. They were 5 mm in largest diameter. Two bands were successfully placed with incomplete eradication of varices. Bleeding had stopped at the end of the procedure. There were esophageal mucosal changes consistent with short-segment Page's esophagus present in the lower third of the esophagus. The maximum longitudinal extent of these mucosal changes was 1 cm in length. A low-grade of narrowing Schatzki ring was found at the gastroesophageal junction. Severe portal hypertensive gastropathy was found in the entire examined stomach. Coagulation for hemostasis using argon plasma at 0.3 liters/minute and 20 garzon was successful. Coagulation for bleeding prevention using argon plasma at 0.3 liters/minute and 20 garzon was successful. Diffuse moderate inflammation was found in the entire duodenum. Biopsies were taken with a cold forceps for histology. Impression: - Grade II esophageal varices. Incompletely eradicated. Banded. 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 - Low-grade of narrowing Schatzki ring. - Portal hypertensive gastropathy. Treated with argon plasma coagulation (APC). - Alcoholic duodenitis. Biopsied. Recommendation: nadol 10mg bid midodrine 5mg tid paracentesis to calculate SAAG with albumin start lasix and aldactone after paracentesis - Continue present medications. Procedure Code(s): --- Professional --- 96589, Esophagogastroduodenoscopy, flexible, transoral; with band ligation of esophageal/gastric varices 53744, 59, Esophagogastroduodenoscopy, flexible, transoral; with control of bleeding, any method 38328, 51, Esophagogastroduodenoscopy, flexible, transoral; with biopsy, single or multiple CPT copyright 2021 [employer]. All rights reserved. The codes documented in this report are preliminary and upon electrician refinery review may be revised to meet current compliance requirements. Ilya Castro DO 02/19/2023 12:16:31 PM This report has been signed electronically. Number of Addenda: 0 Note Initiated On: 02/19/2023 11:51 AM
--- NOTE | 2023-02-19 14:15 | SUR.PHASEI ---
DR. OLVERA WAS AT BEDSIDE AND GAVE 0.2 OF ROBINOL AT 1317 FOR HYPOTENSION, DR. OLVERA GAVE 200MCG OF PHENYLEPHRINE AT 1319, 200MCG OF PHENYLEPHRINE AT 1321, AND AGAIN AT 1329. PT SYSTOLIC BP WAS TRENDING IN THE HIGH 70-100'S AND MAP GREATER THAN [address] OLVERA SPOKE WITH HOSPITALIST ABOUT THE PT'S LEVEL OF CARE AND PER HOSPITALIST KEPT PT IN PACU UNTIL AT LEAST 1400 AND IF BP WAS WITHIN THE BASELINE 20% PT WOULD BE D/C FROM PACU BACK UP TO MS3. PT VITALS WERE WITHIN 20% OF BASELINE AT 1400 DR. OLVERA WAS MADE AWARE AND PER MD PT COULD BE TRANSFERRED BACK UP TO MS3. REPORT GIVEN TO MS3. PT WAS ALERT TO BASELINE UPON D/C FROM PACU.
--- NOTE | 2023-02-19 15:25 | CASEMGMT ---
SW met with patient. Introduced self and role at [facility]. SW asked patient if he would like any resources to assist with cutting back or stopping alcohol consumption. Patient declined any information. Susana LIEBERMAN
[2023-02-19] MEDS: Lactulose 20 GM/30 ML UDC PO (17:28)
[2023-02-19] MEDS: Midodrine HCl 5 MG Tablet 10 MG PO (17:29)
[2023-02-19] MEDS: Ceftriaxone 1 GM/50 ML BAG IV (20:58)
[2023-02-19] MEDS: 0.9% Saline Lock 10 ML Syringe IV ×2 (20:58→21:55)
[2023-02-19] MEDS: Menthol/Lanolin/Calamine/Znox 113 GM Tube 1 APPLIC TOPICAL (21:55)
[2023-02-19] MEDS: Octreotide 0.5 MG in Dextrose 5%-Water (250mL Bag) 250 ML 12.5 MG CONT INF (23:40)
[2023-02-20 04:24] VITALS: BP 101/73; PULSE 75; RESP 16; TEMP 36.4; O2SAT 97
[2023-02-20] MEDS: Lactulose 20 GM/30 ML UDC PO (05:09)
[2023-02-20 05:10] VITALS: BMI 27.1
[2023-02-20] MEDS: 0.9% Saline Lock 10 ML Syringe IV ×4 (05:45→20:25)
[2023-02-20] MEDS: Cosyntropin 0.25 MG in 0.9% Normal Saline (Pres. free 4 ML 120 MG IV (05:45)
[2023-02-20 05:47] LABS: Absolute Lymphocyte Count 1.45 X10^3/uL (0.83-4.51); Absolute Neutrophil Count 9.3 X10^3/uL (2.0-7.7); Basophil# 0.17 X10^3/uL; Basophil% 1.4 % (0-1); Eosinophil# 0.36 X10^3/uL; Eosinophils% 2.9 % (0-5); Hematocrit 47.4 % (40-54); Hemoglobin 15.4 g/dL (13.0-16.5); Lymphocyte # 1.45 X10^3/ul (0.83-4.51); Lymphocyte % 11.7 % (19-41); Mean Corp Hgb Conc 32.5 g/dL (32-36); Mean Corpuscular Volume 107.7 fL (80-94); Mean Platelet Vol. 9.2 fl (6.2-12.0); Monocyte# 1.13 X10^3/uL; Monocyte% 9.1 % (0-10); NRBC Flagged by Analyzer 0 % (0-5); Neutrophil # 9.27 X10^3/uL (2.7-7.7); Neutrophil % 74.4 % (47-70); Platelet Count 261 K/mm3 (150-450); RBC Distribution Width CV 13.1 % (11.6-14.6); RBC Distribution Width SD 52.5 fl (35.1-43.9); White Blood Count 12.4 K/mm3 (4.4-11.0)
[2023-02-20 06:46] LABS: Anion Gap 9 (5-15); BUN 54 mg/dL (7-18); BUN/Creat Ratio 18.1 RATIO (10-20); Calcium,Total 8.7 mg/dL (8.5-10.1); Chloride 102 mmol/L (98-107); Creatinine, Serum 2.98 mg/dL (0.70-1.30); EST Glomerular Filtration Rate 22 mL/min (>60); Est Glom Filt Rate - Afr Amer 27 mL/min (>60); Estimated Creatinine Clearance 25.62 ml/min; Glucose 175 mg/dL (74-106); Sodium Level 132 mmol/L (136-145)
--- NOTE | 2023-02-20 07:36 | PCM.PN.HOSP ---
Reason for Visit Reason for Visit: Diagnoses Alcohol dependence, uncomplicated (02/18/23) Other hypotension (02/18/23) Alcoholic cirrhosis of liver with ascites (02/18/23) Gastrointestinal hemorrhage, unspecified (02/18/23) Acute kidney failure with tubular necrosis (02/18/23) Other ascites (02/18/23) Subjective Subjective Abdomen feeling better after paracentesis. Objective Data Objective Data Vital Signs: Vital Signs Temp Pulse Resp BP Pulse Ox O2 Del Method O2 Flow Rate 36.4 C L 75 16 101/73 97 Room Air 2 02/20/23 04:24 02/20/23 04:24 02/20/23 04:24 02/20/23 04:24 02/20/23 04:24 02/20/23 04:28 02/19/23 15:00 Oxygen Flow Rate (L/min) 2 Oxygen Delivery Method Room Air Weight: 88.1 kg Body Mass Index (BMI) 27.1 Intake & Output: Intake and Output for Last 24 Hours 02/18/23 02/19/23 02/20/23 23:59 23:59 23:59 Intake Total 50 / 50 1657.49 / 1657.49 0 / 0 Balance 50 / 50 1657.49 / 1657.49 0 / 0 Lab / Micro Data 02/20/23 05:35 02/20/23 05:35 Labs: Laboratory Results - last 24 hr 02/20/23 05:35: WBC 12.4 H, RBC 4.40 L, Hgb 15.4, Hct 47.4, MCV 107.7 H, MCH 35.0 H, MCHC 32.5, RDW Std Deviation 52.5 H, RDW Coeff of Hector 13.1, Plt Count 261, MPV 9.2, Immature Gran % (Auto) 0.500, Neut % (Auto) 74.4 H, Lymph % (Auto) 11.7 L, [place] % (Auto) 9.1, Eos % (Auto) 2.9, Baso % (Auto) 1.4 H, Absolute Neuts (auto) 9.3 H, Absolute Lymphs (auto) 1.45, Nucleated RBC % 0, Sodium 132 L, Potassium 5.0, Chloride 102, Carbon Dioxide 21.0, Anion Gap 9, BUN 54 H, Creatinine 2.98 H, Estim Creat Clear Calc 25.62, Est GFR (MDRD) Af Amer 27 L, Est GFR (MDRD) Non-Af 22 L, BUN/Creatinine Ratio 18.1, Glucose 175 H, Calcium 8.7 Physical Exam Const alert and no apparent distress HEENT head/scalp atraumatic and moist oral mucous membranes Resp normal respiratory effort, no retractions, no use of accessory muscles and clear to auscultation bilaterally Cardio regular rate, regular rhythm, S1 normal heart sound and S2 normal heart sound GI normal to inspection, nondistended, normoactive bowel sounds GI Narrative: distended, but much softer Extremity General Extremity: edema bilateral lower extremity Details: mild Neuro Sensorium / Orientation: awake and alert Psych affect normal Assessment & Plan Assessment/Plan (1) GI bleed: QUALIFIERS: GI bleed type/associated pathology: unspecified gastrointestinal hemorrhage type Qualified Code(s): K92.2 - Gastrointestinal hemorrhage, unspecified PLAN: BRBPR. Doubt upper source given relative stability. Monitor H/H On octreotide gtt and pantoprazole gtt EGD performed today showed Grade II esphageal varices, incompletely eradicated. Banded. 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 Low grade Schatzki ring. Portal hypertensive gastropahty. Treat w argon plasma coagulation. Alcoholic duodenitis. on pantoprazole gtt, octreotide gtt and CTX. (2) Ascites: QUALIFIERS: Ascites type: other type Qualified Code(s): R18.8 - Other ascites PLAN: with LE edema likely 2/2 cirrhosis diuretics held given hypotension Pt underwent an US-guided thoracentesis today removing 8-9 liters. Will administer 50g of IV albumin (3) Acute renal failure: QUALIFIERS: Acute renal failure type: with acute tubular necrosis Qualified Code(s): N17.0 - Acute kidney failure with tubular necrosis PLAN: worsening. unclear baseline check urine studies, renal US shows thick-walled trabeculated appearing bladder. consult nephrology. FENa 0.31%. (4) Alcoholism: PLAN: Thiamine and folate PRN lorazepam pt was drinking a pint of liquor/d. He states his last day of alcohol was yesterday. (5) Hypotension: QUALIFIERS: Hypotension type: other hypotension type Qualified Code(s): I95.89 - Other hypotension PLAN: unclear if acute v chronic. Concern for HRS. start midodrine check ACTH stim test PLAN: Plan DVT Prophylaxis: SCDs ordered. Patient was asking about leaving the hospital. I told him I would not recommend that and told him with his worsening kidney function, large volume ascites, I recommend staying further in the hospital. To also receive albumin given his large volume paracentesis and to have follow-up on his lab work. Informed him that I recommend this but I cannot force him to stay in the hospital and is ultimately up to him if he is going to be leaving earlier than is recommended.. He is agreeable to staying. He is very concerned about finances what his cost are. I told him that I can have case management talk to him further in regards to what that could be or if he would need to contact someone through his insurance to find out what his [id number] cost could be. He was agreeable to that. Greater than 55 minutes of which greater than 50% of time was spent at bedside, discussing possibility cirrhosis, his ascites, his need for albumin, his worsening kidney function and need to continue to monitor that as well as are recommending he stay in the hospital until he is medically stabilized to help prevent readmission in the future. He states that he is agreeable to Taran staying overnight. Is unclear if he would stay beyond that at this time. Charges/Coding Visit Charges Inpatient E&M: 48382 [facility] Hosp L3
--- NOTE | 2023-02-20 07:41 | US_ITS ---
STUDY: RENAL ULTRASOUND - COMPLETE REASON FOR EXAM: Male, 67 years old. MIKE TECHNIQUE: Ultrasound evaluation of the kidneys was performed with real-time and static zuluaga-scale imaging. COMPARISON: CT abdomen and pelvis without contrast February 18, 2023 FINDINGS: RIGHT KIDNEY: Normal location of the right kidney, which is normal in size. The right kidney measures 10.6 x 6.4 x 5.6 cm. There is a normal cortex of the right kidney. The renal cortex measures 1.0 cm. Remeasured at the radiologist workstation. There is no right renal mass or cyst. There are no right renal calculi. There is no right hydronephrosis. DISTAL RIGHT URETER: There is non-visualization of the distal right ureter. There is no demonstrated right ureterovesical junction calculus. There is a visualized right ureteral jet. LEFT KIDNEY: Normal location of the left kidney, which is normal in size. The left kidney measures 10.7 x 5.0 x 4.9 cm. There is a normal cortex of the left kidney. The renal cortex measures 1.4 cm. Remeasured at the radiologist workstation. There is no left renal mass or cyst. There are no left renal calculi. There is visualized mild left pelviectasis and/or a peripelvic cyst measuring 2.1 x 0.8 cm. DISTAL LEFT URETER: There is non-visualization of the distal left ureter. There is no demonstrated left ureterovesical junction calculus. There is a visualized left ureteral jet. There is visualized moderate ascites. BLADDER: The distended urinary bladder has a volume of 150 ml. . There is a thickened appearance of the wall of the bladder with almost a trabeculated appearance. Bladder wall may measure up to 5.5 mm. Both ureteral jets are demonstrated. There is no demonstrated mass within the urinary bladder. There are no demonstrated bladder calculi. The aorta is obscured by overlying bowel gas and fluid. US/Kidney and Bladder IMPRESSION: No hydronephrosis. Left-sided peripelvic cyst measuring 2.1 x 0.8 cm stable since prior study. Moderate to large volume ascites. Thick-walled somewhat trabeculated appearing bladder. Could consider cystitis. Potentially neurogenic bladder could have this appearance. Electronically Signed: Lamar Iyer MD at 11:00 EDT Reading Location ID and State: [facility] / [place] Tel , Service support ,
[2023-02-20 08:00] VITALS: BP 103/71; PULSE 82; RESP 24; TEMP 36.3; O2SAT 95
--- NOTE | 2023-02-20 08:00 | US_ITS ---
PROCEDURE: Ultrasound guided paracentesis. DATE OF EXAMINATION: February 20, 2023.. INDICATION: Male, 67 years old. Ascites. PHYSICIAN: Donte Fried M.D. TECHNIQUE: The risks, benefits, and alternatives to the procedure were explained to the patient. The specific risks of bleeding, infection, and damage to bowel were detailed and accepted. Witnessed informed consent was obtained. The abdomen was ultrasonographically surveyed. An appropriate pocket of fluid was identified at the right lower quadrant. The skin were cleaned and prepped in the usual sterile fashion. Using ultrasound guidance, the peritoneal cavity was accessed with a 5-Yemeni paracentesis needle/catheter system. The trocar was removed. A total of 7950 ml of lyndsay-colored fluid were removed from the peritoneal cavity. The catheter was removed and a sterile dressing was applied. The procedure was well tolerated. US/Paracentesis with US IMPRESSION: Ultrasound guided paracentesis. Electronically Signed: Donte Fried MD at 9:01 EDT ,
[2023-02-20 09:03] VITALS: BP 107/70; BP 85/55; BP 97/65; BP 98/61; PULSE 86; PULSE 94; PULSE 95; PULSE 98; RESP 18; TEMP 36.3; O2SAT 95; O2SAT 97; O2SAT 98
[2023-02-20] MEDS: Lidocaine 2% (20 ml mdv) 20 ML Vial INFILT (09:13)
--- NOTE | 2023-02-20 09:15 | FLU_PTH ---
PATIENT: PHILIP MENDOZA LOC: MS3 U#:[id number] AGE/SX: 67/M ROOM: MS314 RE02/18/[address]: Dr. James Cameron DO : 1955 BED: 1 DIS: 02/21/2023 SPEC #: [id number] RECD: 02/20/23 10:03 STATUS: DARNELL JOZEF #: [id number] EUGENIA: 02/20/23 09:[address]: James Cameron DEPT: CYTOLOGY RECD BY: Janet Negrete ENTERED: 02/20/23 11:29 SP TYPE: Fluid OTHR DR: MD Dr. Onesimo Martinez MD Jessica Witmer, PROBE OPERATOR-C Tissues: Abdominal wall, NOS Procedures: Special Stain Group II Surgery Specimen Level IV Cytospin Fluid HEADER OPERATION: Ultrasound-guided paracentesis PRE-OP DIAGNOSIS: Ascites TISSUE SUBMITTED: Paracentesis fluid for cytology DIAGNOSIS CYTOLOGY Paracentesis fluid for cytology (cytospin and cell block): Negative for malignant cells. Acute inflammation. AM:nolvia 02/21/2023 CYTOLOGY STUDY Slides are reviewed. CYTOLOGY GROSS Received is 100 ml of yellow cloudy fluid labeled with the patient's name and and designated per the requisition as paracentesis. Submitted for cytology preparation including cell block. / nolvia 02/20/2023 TC:2 CPT: 04580, 88422
--- NOTE | 2023-02-20 10:20 | PCM.OP.PRO ---
Procedure Report Date of Procedure: 02/20/23 Assessment & Plan Assessment/Plan (1) Ascites: QUALIFIERS: Ascites type: due to alcoholic cirrhosis Qualified Code(s): K70.31 - Alcoholic cirrhosis of liver with ascites PLAN: PROCEDURE: Ultrasound guided paracentesis DATE OF EXAMINATION: February 20, 2023 ORDERING PROVIDER: Dr. Castro INDICATION: Male, 67 years old. Ascites. PROVIDER: KYLE Hamilton TECHNIQUE: The risks, benefits, and alternatives to the procedure were explained to the patient. The specific risks of bleeding, infection, and damage to bowel were detailed and accepted. Witnessed informed consent was obtained. The abdomen was ultrasonographically surveyed. An appropriate pocket of fluid was identified in the right lower quadrant. The skin was prepped with Betadine swabs and sterile field established. Using ultrasound guidance, the peritoneal cavity was accessed with a 5-Hungarian paracentesis needle/catheter system. The trocar was removed. A total of 7950 ml of light lyndsay colored fluid was removed from the peritoneal cavity. The catheter was removed and a sterile dressing was applied. The procedure was well tolerated. IMPRESSION: Successful paracentesis of right lower quadrant. Procedures Radiology Radiology US Procedures: 62195 Paracentesis
[2023-02-20] MEDS: Midodrine HCl 5 MG Tablet 10 MG PO ×3 (10:31→17:54)
[2023-02-20] MEDS: Ensure Plus High Protein 120 ML LIQUID PO ×2 (10:32→14:52)
[2023-02-20] MEDS: Menthol/Lanolin/Calamine/Znox 113 GM Tube 1 APPLIC TOPICAL ×2 (10:33→20:25)
[2023-02-20] MEDS: Folic Acid 1 MG in 0.9% Normal Saline (50mL Bag) 50 ML 200 MG IV (10:39)
[2023-02-20 10:45] LABS: Cytology, Body Fluid / CSF SEE PATHOLOGY REPORT
[2023-02-20 10:54] LABS: Body Fluid Mononuclear WBC # 0.348 10^3/uL; Body Fluid Mononuclear WBC % 49.9 %; Body Fluid Polynuclear WBC # 0.349 10^3/uL; Body Fluid Polynuclear WBC % 50.1 %; Body Fluid Total Cells Counted 0.747 10^3/ul; White Blood Count/Body Fluid 0.697 10^3/uL
--- NOTE | 2023-02-20 11:02 | NURSING ---
-1030-returned from procedure. approx 9L removed during paracentesis. abd much less distended and less firm. drsg to rt lower abd d&i. pt anxious and wanting to dc home. this nurse explained to pt and that nephrology has been consulted and dr will be in to see him sometime today. pt repeatedly saying that he doesnt want anymore of that poop medicine.
[2023-02-20] MEDS: Thiamine Hydrochloride 100 MG in 0.9% Normal Saline (50mL Bag) 50 ML 200 MG IV (11:11)
--- NOTE | 2023-02-20 11:22 | CON.PCM.RE_ITS ---
Documented by User: TERRA Nolan 02/20/23 11:37 Assessment & Plan Assessment/Plan (1) Acute renal failure: QUALIFIERS: Acute renal failure type: with acute tubular necrosis Qualified Code(s): N17.0 - Acute kidney failure with tubular necrosis (2) Bright red blood per rectum: (3) Alcoholism: PLAN: Plan This is a 67-year-old male with past medical history significant for hyperten annika and chronic alcoholism who was admitted to the hospital after presenting with complaints of worsening lower extremity edema, shortness of breath and bright red blood per rectum. Admitted for further evaluation and treatment. Also noted to have elevated creatinine on admission. Nephrology consulted. Patient has normal baseline creatinine, November 2022 serum creatinine 0.89 mg/dL. Serum creatinine 2.5 on admission and today creatinine up to 2.98 mg/dL. Potassium and acid-base acceptable. Patient has been hypotensive. Likely prerenal MIKE multifactorial. Renal ultrasound did not show any hydronephrosis, moderate to large volume ascites. Noncontrast CT of abdomen and pelvis showed large infrarenal abdominal aortic aneurysm, cirrhotic liver. We will check UA and lytes. Continue to monitor renal function along with you. Blood pressures are low but have improved with midodrine. 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 GI consulted for bright red blood per rectum. On octreotide and pantoprazole drips. Patient had EGD which showed grade 2 esophageal varices incompletely eradicated, banded, esophageal mucosal changes consistent with short segment Page's esophagus, portal hypertensive gastropathy, alcoholic duodenitis. For his ascites, he did have paracentesis today with almost 9 L removed. Patient is stating that he wants to go home and may sign himself out of the hospital. Discussed with patient and importance of hospitalization/medical care. Further orders forthcoming as hospitalization evolves, thank you for allowing us to participate in the care of Mr. Mendoza. HPI Consult Data Date of Consult: 02/20/23 HPI Narrative HPI Narrative: PHILIP MENDOZA, is a 67 M with past medical history significant for hypertension, chronic alcohol use who presented to the emergency room with complaints of increasing lower extremity edema extending up into his abdomen as well as shortness of breath. Patient also had bright red blood per rectum, concern for GI bleed. CT of abdomen and pelvis showed ascites, patient admitted for further evaluation and treatment. Nephrology consulted for increasing creatinine. Patient reports he has not been seen by industrial engineering director in the past. In reviewing past labs, November 2022 serum creatinine 0.89 mg/dL. Creatinine on admission 2.51, today his creatinine is 2.98. is at bedside. Patient states that he wants to go home today, does not want any further hospital treatment. Patient reports appetite is poor. Denies any diarrhea, he is complaining of some nausea. [facility] Medical History Alcohol abuse Former smoker Hypertension Home Medications metoprolol succinate 100 mg tablet,extended release 24 hr 100 mg PO DAILY bp 02/18/23 [History Last Taken Unknown] Allergy/AdvReac Type Severity Reaction Status Date / Time No Known Allergies Allergy Verified 02/18/23 15:22 Family History Other Cancer Surgical History no surgical history Social History Smoking Status: Former smoker Electronic Cigarette Use: with nicotine ROS ROS Narrative As in HPI and past medical history Physical Exam Narrative Alert and oriented x3, no apparent distress S1, S2, RRR Lung sounds clear anteriorly Abdomen soft, rounded, nontender, positive bowel sounds Edema noted bilateral lower legs and feet Lab / Micro Data 02/20/23 05:35 02/20/23 05:35 Labs: Laboratory Results - last 24 hr 02/20/23 05:35: WBC 12.4 H, RBC 4.40 L, Hgb 15.4, Hct 47.4, MCV 107.7 H, MCH 35.0 H, MCHC 32.5, RDW Std Deviation 52.5 H, RDW Coeff of Hector 13.1, Plt Count 261, MPV 9.2, Immature Gran % (Auto) 0.500, Neut % (Auto) 74.4 H, Lymph % (Auto) 11.7 L, [place] % (Auto) 9.1, Eos % (Auto) 2.9, Baso % (Auto) 1.4 H, Absolute Neuts (auto) 9.3 H, Absolute Lymphs (auto) 1.45, Nucleated RBC % 0, Sodium 132 L, Potassium 5.0, Chloride 102, Carbon Dioxide 21.0, Anion Gap 9, BUN 54 H, Creatinine 2.98 H, Estim Creat Clear Calc 25.62, Est GFR (MDRD) Af Amer 27 L, Est GFR (MDRD) Non-Af 22 L, BUN/Creatinine Ratio 18.1, Glucose 175 H, Calcium 8.7, Cortisol 26.30 H 02/20/23 06:50: Cortisol 44.50 H 02/20/23 09:15: Fluid WBC 0.697, Fluid Tot Cell Count 0.747, Fld Polynuclear WBCs # 0.349, Fld Polynuclear WBCs % 50.1, Fluid Mononuclear WBCs 0.348, Fld Mononuclear WBCs % 49.9 Radiology Impression Renal Ultrasound 02/20/23 07:41 IMPRESSION: No hydronephrosis. Left-sided peripelvic cyst measuring 2.1 x 0.8 cm stable since prior study. Moderate to large volume ascites. Thick-walled somewhat trabeculated appearing bladder. Could consider cystitis. Potentially neurogenic bladder could have this appearance. Electronically Signed: Lamar Iyer MD at 11:00 EDT , Documented by User: Dr. Onesimo Bell MD 02/20/23 17:05 Assessment & Plan Assessment/Plan (1) Acute renal failure: QUALIFIERS: Acute renal failure type: with acute tubular necrosis Qualified Code(s): N17.0 - Acute kidney failure with tubular necrosis (2) Bright red blood per rectum: (3) Alcoholism: PLAN: Plan This is a 67-year-old male with past medical history significant for h ypertension and chronic alcoholism who was admitted to the hospital after presenting with complaints of worsening lower extremity edema, shortness of breath and bright red blood per rectum. Admitted for further evaluation and treatment. Also noted to have elevated creatinine on admission. Nephrology consulted. Patient has normal baseline creatinine, November 2022 serum creatinine 0.89 mg/dL. Serum creatinine 2.5 on admission and today creatinine up to 2.98 mg/dL. Potassium and acid-base acceptable. Patient has been hypotensive. Likely prerenal MIKE multifactorial. Renal ultrasound did not show any hydronephrosis, moderate to large volume ascites. Noncontrast CT of abdomen and pelvis showed large infrarenal abdominal aortic aneurysm, cirrhotic liver. We will check UA and lytes. Continue to monitor renal function along with you. Blood pressures are low but have improved with midodrine. 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 GI consulted for bright red blood per rectum. On octreotide and pantoprazole drips. Patient had EGD which showed grade 2 esophageal varices incompletely eradicated, banded, esophageal mucosal changes consistent with short segment Page's esophagus, portal hypertensive gastropathy, alcoholic duodenitis. For his ascites, he did have paracentesis today with almost 9 L removed. Patient is stating that he wants to go home and may sign himself out of the hospital. Discussed with patient and importance of hospitalization/medical care. Further orders forthcoming as hospitalization evolves, thank you for allowing us to participate in the care of Mr. Mendoza. 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 normal baseline in November. ? HRS. albumin for today. Already on octreotide and midodrine HPI Consult Data Date of Consult: 02/20/23 [facility] Medical History Alcohol abuse Former smoker Hypertension Home Medications metoprolol succinate 100 mg tablet,extended release 24 hr 100 mg PO DAILY bp 02/18/23 [History Last Taken Unknown] Allergy/AdvReac Type Severity Reaction Status Date / Time No Known Allergies Allergy Verified 02/18/23 15:22 Family History Other Cancer Surgical History no surgical history Social History Smoking Status: Former smoker Electronic Cigarette Use: with nicotine Lab / Micro Data 02/20/23 05:35 02/20/23 05:35
[2023-02-20 11:28] LABS: Glucose, Body Fluid 166 mg/dL (40-70); LDH,Body Fluid 108 Units/L (Not Establ.); Protein, Body Fluid 2.4 g/dL (Not Establ.)
[2023-02-20 11:40] VITALS: BP 93/56; PULSE 97; RESP 24; TEMP 36.6; O2SAT 98
[2023-02-20 11:40] LABS: Auto B Fluid Analyzer BKGD Ct COUNTS W/IN LIMITS (W/IN LIMITS)
[2023-02-20 11:41] LABS: Appearance/Body Fluid SL CLDY; Color/Body Fluid YELLOW; Source- Body Fluid OTHER
[2023-02-20 11:54] LABS: Red Cell Count/Body Fluid 17 /mm3
[2023-02-20 12:18] LABS: Bacteria 0 SEEN /hpf (None Seen); Mucous, Urine 0 SEEN /hpf (<or=2+); Red Blood Cells-Urine 0 SEEN /hpf (0-5); Squamous Epithelial Cells - UA 0 SEEN /hpf (0-5)
[2023-02-20 12:32] LABS: Body Fluid QC Type(s) BF2Q; Lymphocytes 34 %; Monocytes 4 %; Neutrophil (Segs) 50 %; Other Cell Type/BF 12 %
[2023-02-20 12:39] LABS: Urine Chloride 10 mmol/L (Not Establ.); Urine Sodium 14 mmol/L (Not Establ.)
[2023-02-20 12:40] LABS: Protein, Urine (Random) 24.1 mg/dL (<11.9)
[2023-02-20 12:46] LABS: Color, Urine Yellow (Yellow); Glucose, Dipstick Normal (Normal); Ketone-Dipstick Negative (Negative); Leukocyte Esterase-Dipstick Negative /ul (Negative); Nitrite-Dipstick Negative (Negative); Occult Blood-Urine Negative /ul (Negative); Protein-Dipstick 15 mg/dl (Negative); Specific Gravity, Urine 1.015 (1.002-1.030); Urine Bilirubin Dipstick Negative (Negative); Urine Clarity Clear (Clear); Urine Urobilinogen Normal (Normal)
[2023-02-20 13:06] LABS: Hyaline Cast 0-5 SEEN /lpf (0-5); White Blood Cells 0-5 SEEN /hpf (0-5)
--- NOTE | 2023-02-20 13:19 | PN.GI_ITS ---
Subjective Subjective Patient underwent large-volume paracentesis today of almost 9 L of serosanguineous fluid. His SA AG gradient was. 1.8. SAAG = serum albumin ? ascites albumin. A high gradient (SAAG >1.1 g/dL) indicates portal hypertension and suggests a nonperitoneal cause of ascites. He does feel better after getting the fluid removed from his abdomen. He is currently receiving albumin. He was started on midodrine and octreotide yesterday for possible hepatorenal syndrome. He also received ceftriaxone, PPI drip and octreotide for upper GI bleed. Objective Data Objective Data Vital Signs: Vital Signs Temp Pulse Resp BP Pulse Ox O2 Del Method O2 Flow Rate 97.8 F 97 24 H 93/56 L 98 Room Air 2 02/20/23 11:40 02/20/23 11:40 02/20/23 11:40 02/20/23 11:40 02/20/23 11:40 02/20/23 11:40 02/19/23 15:00 Oxygen Flow Rate (L/min) 2 Oxygen Delivery Method [4] Room Air Oxygen Delivery Method [3] Room Air Oxygen Delivery Method [2] Room Air Oxygen Delivery Method [1 ( Room Air Initial Baseline)] Oxygen Delivery Method Room Air Weight: 194 lb 3.636 oz Body Mass Index (BMI) 27.1 Intake & Output: Intake and Output for Last 24 Hours 02/18/23 02/19/23 02/20/23 23:59 23:59 23:59 Intake Total 50 / 50 1657.49 / 1657.49 449.12 / 449.12 Output Total 7950 / 7950 Balance 50 / 50 1657.49 / 1657.49 -7500.88 / -7500.88 Lab / Micro Data 02/20/23 05:35 02/20/23 05:35 Labs: Laboratory Results - last 24 hr 02/20/23 05:35: WBC 12.4 H, RBC 4.40 L, Hgb 15.4, Hct 47.4, MCV 107.7 H, MCH 35.0 H, MCHC 32.5, RDW Std Deviation 52.5 H, RDW Coeff of Hector 13.1, Plt Count 261, MPV 9.2, Immature Gran % (Auto) 0.500, Neut % (Auto) 74.4 H, Lymph % (Auto) 11.7 L, [place] % (Auto) 9.1, Eos % (Auto) 2.9, Baso % (Auto) 1.4 H, Absolute Neuts (auto) 9.3 H, Absolute Lymphs (auto) 1.45, Nucleated RBC % 0, Sodium 132 L, Potassium 5.0, Chloride 102, Carbon Dioxide 21.0, Anion Gap 9, BUN 54 H, Creatinine 2.98 H, Estim Creat Clear Calc 25.62, Est GFR (MDRD) Af Amer 27 L, Est GFR (MDRD) Non-Af 22 L, BUN/Creatinine Ratio 18.1, Glucose 175 H, Calcium 8.7, Cortisol 26.30 H 02/20/23 06:50: Cortisol 44.50 H 02/20/23 09:15: Fluid Source OTHER, Fluid Color YELLOW, Fluid Appearance SL CLDY, Fluid WBC 0.697, Fluid RBC 17, Fluid Tot Cell Count 0.747, Fld Polynuclear WBCs # 0.349, Fld Polynuclear WBCs % 50.1, Fluid Mononuclear WBCs 0.348, Fld Mononuclear WBCs % 49.9, Fluid Neutrophils 50, Fluid Lymphocytes 34, Fluid Monocytes 4, Fluid Other Cells 12, Fl Pathologist Comment May follow, Fluid Glucose 166 H, Fluid Total Protein 2.4, Fluid LDH 108, Fluid Comment 2 SEE COMMENT 02/20/23 12:00: Urine Color Yellow, Urine Clarity Clear, Urine pH 5.0, Ur Specific [place] 1.015, Urine Protein 15 H, Urine Glucose (UA) Normal, Urine Ketones Negative, Urine Occult Blood Negative, Urine Nitrite Negative, Urine Bilirubin Negative, Urine Urobilinogen Normal, Ur Leukocyte Esterase Negative, Urine RBC 0 SEEN, Urine WBC 0-5 SEEN, Ur Squamous Epith Cells 0 SEEN, Urine Bacteria 0 SEEN, Hyaline Casts 0-5 SEEN, Urine Mucus 0 SEEN, U Random Total Protein 24.1 H, Ur Random Sodium 14 02/20/23 12:00: Ur Random Sodium Cancelled 02/20/23 12:00: Ur Random Sodium Cancelled, Urine Creatinine 101.00, Urine Potassium 39.0, Urine Chloride 10 Radiography Diagnostic Testing: Radiology Impression Renal Ultrasound 02/20/23 07:41 IMPRESSION: No hydronephrosis. Left-sided peripelvic cyst measuring 2.1 x 0.8 cm stable since prior study. Moderate to large volume ascites. Thick-walled somewhat trabeculated appearing bladder. Could consider cystitis. Potentially neurogenic bladder could have this appearance. Electronically Signed: Lamar Iyer MD at 11:00 EDT , Physical Exam Narrative Physical exam: General: Well-nourished, well-developed. Head: Normocephalic, atraumatic, no tenderness Eyes: Vision is grossly intact. EOMI ENT, no trauma, dry mucous membranes, no rhinorrhea Neck: Nontender, No thyromegaly. CVS: Regular rate and rhythm. S1-S2 present. No murmur, gallop or rub. Respiratory : Rales bilaterally, chest wall nontender Abdomen: Distended abdomen; normal bowel sounds, no masses : Deferred Back: Nontender, no CVA tenderness, no midline spinal tenderness, deformities, step-offs Extremities: Swelling bilateral lower extremities Skin: Normal color, no trauma, abrasions Neuro: Alert, oriented, cranial nerves II through XII grossly intact. Psychiatry: Normal mood. Normal affect. Not depressed. Not anxious. Assessment & Plan Assessment/Plan (1) Cirrhosis: QUALIFIERS: Hepatic cirrhosis type: alcoholic cirrhosis Ascites presence: with ascites Qualified Code(s): K70.31 - Alcoholic cirrhosis of liver with ascites (2) GI bleed: QUALIFIERS: GI bleed type/associated pathology: unspecified gastrointestinal hemorrhage type Qualified Code(s): K92.2 - Gastrointestinal hemorrhage, unspecified (3) Ascites: QUALIFIERS: Ascites type: due to alcoholic cirrhosis Qualified Co de(s): K70.31 - Alcoholic cirrhosis of liver with ascites (4) Acute renal failure: QUALIFIERS: Acute renal failure type: with acute tubular necrosis Qualified Code(s): N17.0 - Acute kidney failure with tubular necrosis PLAN: Plan ?67-year-old gentleman presented to the ED at our facility with complaints of abdominal distension associated with sporadic epigastric pain, night sweats, unintentional weight loss of about 18 KG over two months. He does admit to alcoholism. He underwent a CT scan of the abdomen pelvis that displayed a?cirrhotic liver, esophageal varices, multiple gallstones. Severe ascites. Variceal bleeding- he underwent upper endoscopy and had esophageal banding of esophageal varices. Recommend nadolol 10 mg twice a day. Ascites -today he underwent large-volume paracentesis. His SAG gradient being greater than 1.1 is consistent with portal hypertension from alcoholic cirrhosis. Recommended he be started on midodrine as it can help decrease ascites and decrease occurrence of needing frequent paracentesis when accompanied with diuretics. Not recommending to start diuretics at this time due to worsening kidney function Acute renal failure - his kidney function has been getting worse so he was started on treatment for hepatorenal syndrome. His urine sodium is 14. I sent off a urine osmolality but that is pending. Most cases of HRS have urine sodium?<10 mmol/L?and urine osmolality above plasma osmolality because the tubular function is preserved. However, a minority of patients may have higher urine sodium and low urine osmolality, similar to values found in acute tubular necrosis. Mental status-had a long conversation with his significant other and she has a very difficult time with him lately and she is wondering if it is all secondary to his liver. I told her that we do have to check an ammonia level along with some other labs. If he leaves the hospital AMA then his 30-day mortality is at least 65%.
--- NOTE | 2023-02-20 14:13 | CHAPLAIN ---
Type of Pastoral Visit _x__ Initial Visit ___ Follow-up Visit ___ On-call Visit ___ General Patient Visit ___ Spiritual Assessment ___ Family Conference ___ Bereavement ___ Rapid Response ___ Code Blue ___ Other (describe below) Pastoral Care Referral From ___ Patient ___ Family _x__ Nurse ___ Physician ___ Group Exercise Instructor ___ Set And Exhibit Designer ___ Other (describe below) Sacrament/Intervention _x__ Active listening ___ Anointing ___ Worship ___ Bereavement ___ Communion _x__ Aretha exploration ___ _x__ Life review ___ Prayer ___ Reconciliation ___ Sacrament of Sick _x__ Supportive presence ___ Wedding ___ Other (describe below) Pastoral Comments 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
--- NOTE | 2023-02-20 14:20 | CASEMGMT ---
RN AMARA NOTE: Per Dr Cameron, pt has questions re: insurance/bill. RN AMARA to room. Pt sitting up in chair in room. @ bedside. Questions answered and they stated had no further questions at this time. Pt and made aware, if they have any further questions when they get the bill, that there will be a # for PFS. They voice understanding. Jeni PASCALN [facility] CM
[2023-02-20] MEDS: Albumin Human 25% (100 mL) 25 GM/100 ML BAG IV ×2 (14:51→16:32)
[2023-02-20 17:57] VITALS: BP 107/68; PULSE 102; RESP 16; TEMP 36.6; O2SAT 100
[2023-02-20] MEDS: Pantoprazole Sodium 80 MG in 0.9% Normal Saline (100mL Bag) 80 ML 10 MG CONT INF (20:24)
[2023-02-20] MEDS: Ceftriaxone 1 GM/50 ML BAG IV (20:24)
[2023-02-20 20:36] VITALS: BP 101/61; PULSE 84; RESP 16; TEMP 36.6; O2SAT 98
[2023-02-20 21:10] LABS: Osmolality, Urine 401 mOsm/KG
[2023-02-20] MEDS: Octreotide 0.5 MG in Dextrose 5%-Water (250mL Bag) 250 ML 12.5 MG CONT INF (22:35)
[2023-02-21 01:32] VITALS: BP 111/71; PULSE 103; RESP 18; TEMP 36.1; O2SAT 99
[2023-02-21 04:35] VITALS: BMI 24.9
[2023-02-21] MEDS: Pantoprazole Sodium 80 MG in 0.9% Normal Saline (100mL Bag) 80 ML 10 MG CONT INF (05:21)
--- NOTE | 2023-02-21 06:29 | PCM.PN.BLA ---
Progress Note Notified by nursing team that patient is leaving AMA; and patient's is here to pick patient up.
--- NOTE | 2023-02-21 06:40 | NURSING ---
Pt called his yasmeen to come and pick him up, she arrived and pt is leaving ama. Discussed risks and encouraged pt to call his pcp and Dr. Friend to follow up. Also encouraged pt not to drink alcohol. Pt and discussed with hospitalist leaving ama 02/20 and state they have all the info they need and will call pt dr to f/u. flotation operator aware, security here and escorted to car. supervisor international reservations aware. supervisor international reservations notified Dr. Raymundo & nursing veneer supervisor.
--- NOTE | 2023-02-21 09:48 | PCM.DC.SUM ---
Providers Date of Admission: 02/18/23 Primary Care Physician: TRERA Ariza Consultations 02/18/23 23:20 Consult: Gastroenterology Routine Consulting Provider: [facility] Reason for Consult: Bright red bood per rectum EMERGENT Consult: No Notified: Yes Date Notified: 02/18/23 Time Notified: 21:25 Method of Notification: ED Physician Initiated 02/20/23 07:41 Consult: Nephrology Routine Consulting Provider: Onesimo Bell Reason for Consult: mike EMERGENT Consult: No MD Notified: Yes Date Notified: 02/20/23 Time Notified: 08:51 Method of Notification: Answering Service Reason For Visit: BRBPR, ANASARCA. Diagnosis Discharge Diagnosis (1) GI bleed: Status: Acute Code(s): K92.2 - Gastrointestinal hemorrhage, unspecified Qualifiers: GI bleed type/associated pathology: unspecified gastrointestinal hemorrhage type Qualified Code(s): K92.2 - Gastrointestinal hemorrhage, unspecified Plan: BRBPR. Doubt upper source given relative stability. Monitor H/H On octreotide gtt and pantoprazole gtt EGD performed today showed Grade II esphageal varices, incompletely eradicated. Banded. 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 Low grade Schatzki ring. Portal hypertensive gastropahty. Treat w argon plasma coagulation. Alcoholic duodenitis. on pantoprazole gtt, octreotide gtt and CTX. (2) Acute renal failure: Status: Acute Code(s): N17.9 - Acute kidney failure, unspecified Qualifiers: Acute renal failure type: with acute tubular necrosis Qualified Code(s): N17.0 - Acute kidney failure with tubular necrosis Plan: worsening. unclear baseline check urine studies, renal US shows thick-walled trabeculated appearing bladder. consult nephrology. FENa 0.31%. (3) Alcoholism: Status: Acute Code(s): F10.20 - Alcohol dependence, uncomplicated Plan: Thiamine and folate PRN lorazepam pt was drinking a pint of liquor/d. He states his last day of alcohol was yesterday. (4) Ascites: Status: Acute Code(s): R18.8 - Other ascites Qualifiers: Ascites type: due to alcoholic cirrhosis Qualified Code(s): K70.31 - Alcoholic cirrhosis of liver with ascites Plan: with LE edema likely 2/2 cirrhosis diuretics held given hypotension Pt underwent an US-guided thoracentesis today removing 8-9 liters. Will administer 50g of IV albumin Plan DVT Prophylaxis: SCDs ordered. Patient was asking about leaving the hospital. I told him I would not recommend that and told him with his worsening kidney function, large volume ascites, I recommend staying further in the hospital. To also receive albumin given his large volume paracentesis and to have follow-up on his lab work. Informed him that I recommend this but I cannot force him to stay in the hospital and is ultimately up to him if he is going to be leaving earlier than is recommended.. He is agreeable to staying. He is very concerned about finances what his cost are. I told him that I can have case management talk to him further in regards to what that could be or if he would need to contact someone through his insurance to find out what his [id number] cost could be. He was agreeable to that. Greater than 55 minutes of which greater than 50% of time was spent at bedside, discussing possibility cirrhosis, his ascites, his need for albumin, his worsening kidney function and need to continue to monitor that as well as are recommending he stay in the hospital until he is medically stabilized to help prevent readmission in the future. He states that he is agreeable to [facility] staying overnight. Is unclear if he would stay beyond that at this time. Medications at Discharge Home Medications metoprolol succinate 100 mg tablet,extended release 24 hr 100 mg PO DAILY bp 02/18/23 Hospital Course Operations None Procedures EGD and Paracentesis Summary of Care Provided Hospital Course: Patient presents with anasarca. Patient also had a GI bleed. Patient underwent an EGD that showed grade 2 esophageal varices that were banded. Patient also had what looked to be portal hypertensive gastropathy. Patient also had large amount of ascites and did undergo a paracentesis that removed 8 to 9 L. Additionally, patient had acute kidney injury. Is unclear what the etiology of his acute kidney injury was but nephrology was consulted for that. Today, early in the morning, patient contacted his and said he was leaving and going to [place]. Patient was concerned about staying in the hospital previous to that due to finances and told him I would have him speak with case management but he left AGAINST MEDICAL ADVICE. Hopefully patient will follow-up with his primary care doctor as well as nephrology and gastroenterology. Weight / BMI Weight Weight: 80.8 kg Body Mass Index (BMI) 24.9 ABG / Lab / Microbiology Data 02/20/23 05:35 02/20/23 05:35 Laboratory: Laboratory Results - last 24 hr 02/20/23 09:15: Fluid Source OTHER, Fluid Color YELLOW, Fluid Appearance SL CLDY, Fluid WBC 0.697, Fluid RBC 17, Fluid Tot Cell Count 0.747, Fld Polynuclear WBCs # 0.349, Fld Polynuclear WBCs % 50.1, Fluid Mononuclear WBCs 0.348, Fld Mononuclear WBCs % 49.9, Fluid Neutrophils 50, Fluid Lymphocytes 34, Fluid Monocytes 4, Fluid Other Cells 12, Fl Pathologist Comment May follow, Fluid Glucose 166 H, Fluid Total Protein 2.4, Fluid LDH 108, Fluid Comment 2 SEE COMMENT 02/20/23 12:00: Urine Color Yellow, Urine Clarity Clear, Urine pH 5.0, Ur Specific [place] 1.015, Urine Protein 15 H, Urine Glucose (UA) Normal, Urine Ketones Negative, Urine Occult Blood Negative, Urine Nitrite Negative, Urine Bilirubin Negative, Urine Urobilinogen Normal, Ur Leukocyte Esterase Negative, Urine RBC 0 SEEN, Urine WBC 0-5 SEEN, Ur Squamous Epith Cells 0 SEEN, Urine Bacteria 0 SEEN, Hyaline Casts 0-5 SEEN, Urine Mucus 0 SEEN, U Random Total Protein 24.1 H, Ur Random Sodium 14 02/20/23 12:00: Ur Random Sodium Cancelled 02/20/23 12:00: Ur Random Sodium Cancelled, Urine Creatinine 101.00, Urine Potassium 39.0, Urine Chloride 10 02/20/23 20:15: Urine Osmolality 401 Radiography Diagnostic Testing: Radiology Impression Renal Ultrasound 02/20/23 07:41 IMPRESSION: No hydronephrosis. Left-sided peripelvic cyst measuring 2.1 x 0.8 cm stable since prior study. Moderate to large volume ascites. Thick-walled somewhat trabeculated appearing bladder. Could consider cystitis. Potentially neurogenic bladder could have this appearance. Electronically Signed: Lamar Iyer MD at 11:00 EDT , D/C Instructions Discharge Diet: 8 Cup Fluid Restriction and 2000 mg Sodium Diet Meaningful Use Info Meaningful Use Diagnoses (Choose all that apply): None applicable Discharge Plan Admission Admit Date/Time: 02/18/23 21:16 Primary Reason for Your Visit: ascites. GI bleed. MIKE. Attending Provider: James Cameron Primary Care Provider: Jenn Stanley NP Consulting Providers: Skyler Raymundo; Onesimo Bell Instructions Patient Instructions: MAXIMILIANO RN Paracentesis Dc Discharge Orders/Prescriptions Prescriptions: No Action metoprolol succinate 100 mg tablet extended release 24 hr 100 mg PO DAILY Patient Comments: TAKE 1 TABLET BY MOUTH EVERY DAY Referrals / Follow Up: Jenn Stanley NP, [facility] [Primary Care Provider] - Within 2 Weeks Onesimo Bell MD [Med Staff - Consulting] - Within 1 Month Ilya Castro DO [Med Staff - Active Staff] - Within 1 Month Disposition Disposition (needs filled in before D/C Order can be placed): Against Medical Advice
[2023-02-21 11:09] LABS: Albumin, Body Fluid 1.2 g/dL (Not Estab.)
[2023-02-21 13:20] LABS: Pathologist Comment/Body Fluid Reviewed
== END 2023-02-21 06:51 | disposition left against medical advice (07) | DRG 432 ==
LOC: ED 21:15 → MS3 21:56
PROVIDERS: Anesthesiology; Internal Medicine Gastroenterology; Nurse Practitioner Adult Health; Admitting Provider Hospitalist; Emergency Provider Emergency Medicine; PCP Nurse Practitioner Primary Care
PROC: 0DJ08ZZ Inspection of Upper Intestinal Tract, Via Natural or Artificial Opening Endoscopic (ICD-10-PCS; CPT 43235; principal; 2023-02-19 11:25)
DX: K70.31 Alcoholic cirrhosis of liver with ascites (principal); N17.0 Acute kidney failure with tubular necrosis; K76.7 Hepatorenal syndrome; K76.6 Portal hypertension; I85.00 Esophageal varices without bleeding; F10.20 Alcohol dependence, uncomplicated; I71.43 Infrarenal abdominal aortic aneurysm, without rupture; I10 Essential (primary) hypertension; K57.30 Diverticulosis of large intestine without perforation or abscess without bleeding; K80.20 Calculus of gallbladder without cholecystitis without obstruction; K22.70 Barrett's esophagus without dysplasia; K22.2 Esophageal obstruction; K31.89 Other diseases of stomach and duodenum; K29.80 Duodenitis without bleeding; Z87.891 Personal history of nicotine dependence; Y90.9 Presence of alcohol in blood, level not specified
CPT/HCPCS: 36415; 49083; 74176; 76770; 80048; 80053; 80076; 81001; 82042; 82436; 82533; 82570; 82945; 83615; 83690; 83735; 83880; 83935; 84100; 84133; 84156; 84157; 84300; 85025; 85610; 85730; 86850; 86900; 86901; 88108; 88305; 88313; 89050; 93005; 97162; 97165; 97802; 99285; J7120; P9047; A4216; J0834; J2405; J3490

== ENCOUNTER → 2023-04-28 | Outpatient (CLI) | payer MEDICARE, SELFPAY ==
[2023-04-28 15:12] LABS: Absolute Lymphocyte Count 1.59 X10^3/uL (0.83-4.51); Absolute Neutrophil Count 4.5 X10^3/uL (2.0-7.7); Basophil# 0.13 X10^3/uL; Basophil% 1.8 % (0-1); Eosinophil# 0.35 X10^3/uL; Eosinophils% 4.7 % (0-5); Hematocrit 38.7 % (40-54); Lymphocyte # 1.59 X10^3/ul (0.83-4.51); Lymphocyte % 21.5 % (19-41); Mean Corp Hgb Conc 33.6 g/dL (32-36); Mean Corpuscular Hgb 35.7 pg (27.0-32.0); Mean Corpuscular Volume 106.3 fL (80-94); Mean Platelet Vol. 9.1 fl (6.2-12.0); Monocyte# 0.82 X10^3/uL; Monocyte% 11.1 % (0-10); NRBC Flagged by Analyzer 0 % (0-5); Neutrophil # 4.47 X10^3/uL (2.7-7.7); Neutrophil % 60.6 % (47-70); Platelet Count 192 K/mm3 (150-450); RBC Distribution Width CV 14.4 % (11.6-14.6); Red Blood Count 3.64 M/mm3 (4.6-6.2); White Blood Count 7.4 K/mm3 (4.4-11.0)
[2023-04-28 15:24] LABS: International Normalized Ratio 1.3; Prothrombin Time (Protime)PT. 16.5 SECONDS (11.7-14.9)
[2023-04-28 16:28] LABS: AST(SGOT) 30 U/L (15-37); Alanine Aminotransfer ALT/SGPT 12 U/L (16-61); Albumin, Serum 1.9 g/dL (3.2-5.0); Alkaline Phosphatase 137 U/L (45-117); Anion Gap 1 (5-15); BUN 18 mg/dL (7-18); BUN/Creat Ratio 12.4 RATIO (10-20); Bilirubin, Direct 0.96 mg/dL (0.00-0.30); Calcium,Total 9.1 mg/dL (8.5-10.1); Chloride 108 mmol/L (98-107); Creatinine, Serum 1.45 mg/dL (0.70-1.30); EST Glomerular Filtration Rate 51 mL/min (>60); Est Glom Filt Rate - Afr Amer 62 mL/min (>60); Globulin 5.9 g/dL (2.2-4.2); Glucose 139 mg/dL (74-106); Magnesium 1.9 mg/dL (1.6-2.6); Phosphorus 2.8 mg/dL (2.5-4.9); Potassium 4.7 mmol/L (3.5-5.1); Protein, Total 7.8 g/dL (6.4-8.2); Sodium Level 137 mmol/L (136-145)
== END | disposition home or self-care (01) ==
LOC: LAB 14:52
PROVIDERS: PCP Nurse Practitioner Primary Care; Referring Provider Internal Medicine; Visit Provider Internal Medicine
DX: K70.31 Alcoholic cirrhosis of liver with ascites (principal); N28.9 Disorder of kidney and ureter, unspecified
CPT/HCPCS: 36415; 80048; 80076; 82140; 83735; 84100; 85025; 85610